=== PATIENT | male | born 1985 | race African-American/Black ===

== ENCOUNTER 2017-12-22 10:49 | Emergency (ER) | payer SELFPAY ==
[~2017-12-22] VITALS: Ht 182.9 cm; Wt 84.5 kg
[~2017-12-22 10:49] MED LIST: BACT800T5 PO; CEPH500C3 PO; CLIN150 PO; IBUP800 PO; IBUP800T23 PO
[2017-12-22 10:51] VITALS: BP 122/70; PULSE 93; RESP 14; TEMP 98.7; O2SAT 97
[2017-12-22] MEDS ORDERED: CEPH-460 PO (11:15)
[2017-12-22] MEDS ORDERED: BACT800T5 PO (11:15)
--- NOTE | 2017-12-22 11:15 | PD ---
HPI Chief Complaint: Bite or Sting Time Seen by Provider: 11:06 Travel History International Travel<30 days: No Contact w/Intl Traveler<30days: No Traveled to known affect area: No History of Present Illness HPI Patient is a 32-year-old male who comes in complaining of an area of redness and pain to his left upper thigh. He says it has been there for the past week. He is concerned maybe he got a spider bite. He does not remember being bit by anything. He denies fever chills. He says it seems to be getting bigger and more painful. Nothing seems to make his symptoms better or worse. Severity is mild. PFSH Past Medical History Asthma: Yes Social History Alcohol Use: No Tobacco Use: Yes (1 BLACK AND MILD) Substance Use: No Allergies-Medications (Allergen,Severity, Reaction): Coded Allergies: No Known Allergies (Verified , 06/29/16) Reported Meds & Prescriptions Reported Meds & Active Scripts Active Review of Systems General / Constitutional: No: Fever HENT: No: Headaches Cardiovascular: No: Chest Pain or Discomfort Respiratory: No: Shortness of Breath Gastrointestinal: No: Nausea, Vomiting Musculoskeletal: No: Myalgias, Pain Skin: Positive Lesions Neurologic: No: Weakness, Dizziness Physical Exam Narrative GENERAL: Awake and alert, in no acute distress. SKIN: Focused skin assessment warm/dry. 2 cm area of erythema to the left upper anterior thigh. No fluctuance, slight induration. HEAD: Atraumatic. Normocephalic. EYES: Pupils equal and round. No scleral icterus. ENT: Mucous membranes pink and moist. CARDIOVASCULAR: Regular rate and rhythm. No murmur appreciated. RESPIRATORY: No accessory muscle use. Clear to auscultation. Breath sounds equal bilaterally. MUSCULOSKELETAL: No obvious deformities. No clubbing. No cyanosis. No edema. NEUROLOGICAL: Awake and alert. No obvious cranial nerve deficits. Motor grossly within normal limits. Normal speech. Data Data Last Documented VS Vital Signs Date Time Temp Pulse Resp B/P (MAP) Pulse Ox O2 Delivery O2 Flow Rate FiO2 12/22/17 10:51 98.7 93 14 122/70 (87) 97 MDM Medical Decision Making Medical Screen Exam Complete: Yes Emergency Medical Condition: Yes Differential Diagnosis cellulitis vs abscess vs insect bite Narrative Course Patient is a 32 year old male who comes in complaining of a painful lesion to his left thigh. Exam shows a small area of erythema, no fluctuance. Patient advised there is nothing to drain at this time. He will be discharged with prescriptions for Keflex and Bactrim. Advised to return if symptoms worsen or he notices it becoming more swollen. Diagnosis Primary Impression: Cellulitis Qualified Codes: L03.116 - Cellulitis of left lower limb Patient Instructions: Cellulitis (ED), General Instructions Additional Instructions: Take all of your antibiotics. Apply warm compresses to the area several times per day. Return anytime for any worsening symptoms. Scripts Cephalexin (Keflex) 500 Mg Capsule 500 MG PO QID for Infection for 7 Days, CAP 0 Refills Prov: Dayna Benitez MD 12/22/17 Sulfamethoxazole-Trimethoprim (Bactrim DS) 800-160 Mg Tab 1 TAB PO BID for Infection, #14 TAB 0 Refills Prov: Dayna Benitez MD 12/22/17 Disposition: 01 DISCHARGE HOME Condition: Stable Dayna Benitez MD Dec 22, 2017 11:15
== END 2017-12-22 11:31 | disposition home or self-care (01) ==
LOC: NEPD 10:49
DX: L03.116 Cellulitis of left lower limb (principal); J45.909 Unspecified asthma, uncomplicated; F17.290 Nicotine dependence, other tobacco product, uncomplicated
CPT/HCPCS: 99283